=== PATIENT | female | born 1955 | race Two or more races ===

== ENCOUNTER 2023-11-11 00:21 | Emergency (ER) | payer MEDICARE, BC ==
[~2023-11-11] VITALS: Ht 162.6 cm; Wt 66.8 kg
[2023-11-11 02:17] VITALS: BP 138/63; PULSE 80; RESP 16; TEMP 99.1; O2SAT 94
== END 2023-11-11 03:20 | disposition home or self-care (01) ==
LOC: ER 00:21
DX: S83.92XA Sprain of unspecified site of left knee, initial encounter (principal); Z88.6 Allergy status to analgesic agent; X58.XXXA Exposure to other specified factors, initial encounter; Y93.89 Activity, other specified; Y92.89 Other specified places as the place of occurrence of the external cause; Y99.8 Other external cause status
CPT/HCPCS: 93971